=== PATIENT | female | born 1975 ===

== ENCOUNTER 2022-07-21 14:59 | Inpatient (IN) | payer OTHER ==
[~2022-07-21] VITALS: Ht 154.9 cm; Wt 63.5 kg
[2022-07-22] MEDS ORDERED: GLUMETZA1000 MG (12:36)
== END 2022-07-24 16:28 | disposition home or self-care (01) | DRG 741 ==
LOC: OB/GYN 07-23 08:32 → O/R 07-23 08:32 → OB/GYN 07-23 09:00
PROVIDERS: ADMIT Specialist; ATTEND Specialist
PROC: 0UT74ZZ Resection of Bilateral Fallopian Tubes, Percutaneous Endoscopic Approach (ICD-10-PCS; 2022-07-23)
PROC: 0UT24ZZ Resection of Bilateral Ovaries, Percutaneous Endoscopic Approach (ICD-10-PCS; 2022-07-23)
PROC: 07BC4ZZ Excision of Pelvis Lymphatic, Percutaneous Endoscopic Approach (ICD-10-PCS; 2022-07-23)
PROC: 3E1M48Z Irrigation of Peritoneal Cavity using Irrigating Substance, Percutaneous Endoscopic Approach (ICD-10-PCS; 2022-07-23)
PROC: 0UT94ZZ Resection of Uterus, Percutaneous Endoscopic Approach (ICD-10-PCS; principal; 2022-07-23 09:00)
DX: C54.1 Malignant neoplasm of endometrium (principal); N83.02 Follicular cyst of left ovary; N83.01 Follicular cyst of right ovary; Z20.822 Contact with and (suspected) exposure to COVID-19

== ENCOUNTER 2022-07-27 11:12 | Emergency (ER) | payer OTHER ==
[~2022-07-27] VITALS: Ht 154.9 cm; Wt 63.5 kg
[~2022-07-27 11:12] MED LIST: GLUMETZA1000 MG
== END 2022-07-27 13:45 | disposition home or self-care (01) ==
LOC: ER 11:12
DX: N39.0 Urinary tract infection, site not specified (principal); B95.2 Enterococcus as the cause of diseases classified elsewhere